=== PATIENT | female | born 1950 | race Caucasian/White ===

== ENCOUNTER 2023-09-06 03:20 | Emergency (ER) | payer MEDICARE ==
[~2023-09-06] VITALS: Ht 170.2 cm; Wt 102.4 kg
[~2023-09-06 03:20] MED LIST: NORCO 5-325 TA1 EACH PO; PREDNISONE20 MG PO; VENTOLIN HFA18 GM INH
[2023-09-06 03:38] LABS: BILIRUBIN, URINE NEGATIVE (negative); BLOOD/HGB, URINE NEGATIVE (Negative); KETONE, URINE NEGATIVE (Negative); LEUK ESTERASE, URINE NEGATIVE (negative); NITRITE, URINE NEGATIVE (negative)
[2023-09-06 03:53] LABS: AMPHETAMINES, URINE NEGATIVE (NEGATIVE); BARBITURATES, URINE NEGATIVE (NEGATIVE); BENZODIAZEPINE, URINE NEGATIVE (NEGATIVE); BUPRENORPHINE, URINE NEGATIVE (NEGATIVE); CANNABINOID, URINE NEGATIVE (NEGATIVE); COCAINE, URINE NEGATIVE (NEGATIVE); ECSTASY, URINE NEGATIVE (NEGATIVE); FENTANYL, URINE NEGATIVE (NEGATIVE); METHADONE, URINE NEGATIVE (NEGATIVE); OPIATES, URINE NEGATIVE (NEGATIVE); OXYCODONE, URINE NEGATIVE (NEGATIVE); PHENCYCLIDINE, URINE NEGATIVE (NEGATIVE)
[2023-09-06 03:57] LABS: HEMOGLOBIN 14.1 g/dL (12.0-18.0); MCH 31.9 (27-36); MCHC 33.3 g/dl (30-36)
[2023-09-06 04:00] LABS: BASOPHILS 0.6 % (0-2); EOSINOPHILS 1.7 % (0-6); HEMATOCRIT 42.2 % (35.0-50.0); MCV 95.6 fl (81-99); MONOCYTES 6.8 % (0-12); NEUTROPHILS 64.9 % (39-80); PLATELET COUNT 224 K/uL (140-440); RBC 4.41 M/ul (4.3-5.7); RDW 14.5 (10.5-15.0)
[2023-09-06 04:19] LABS: MAGNESIUM 1.9 mg/dL (1.8-2.4)
[2023-09-06 04:20] LABS: ALBUMIN 3.3 g/dL (3.4-5.0); ALBUMIN/GLOBULIN RATIO 0.85 (1.1-2.4); ANION GAP 13.7 (7-21); BILIRUBIN, TOTAL 0.3 ng/dL (0.2-1.0); BUN/CREATININE RATIO 17.94 (6.0-28.6); CALCIUM 8.1 mg/dL (8.5-10.1); CREATININE, SERUM 0.78 mg/dL (0.55-1.02); POTASSIUM 3.7 mmol/L (3.5-5.1); PROTEIN, TOTAL 7.2 g/dL (6.4-8.2)
[2023-09-06 04:22] LABS: INFLUENZA B NAA NEGATIVE (NEGATIVE); RESPIRATORY SYNCYTIAL VIR NAA NEGATIVE (NEGATIVE)
[2023-09-06] MEDS ORDERED: ACETAMINOPHEN 500 MG TAB PO ONE (06:15)
[2023-09-06 06:46] VITALS: BP 153/90
--- NOTE | 2023-09-07 18:31 | EKG ---
[facility] [address] [place], [place] [address] Signed Sinus rhythm with occasional premature ventricular complexes Otherwise normal ECG No previous ECGs available Confirmed by MAINE WELLINGTON MD ([id number]) on 09/07/2023 6:32:02 PM Electronically Signed By: MAINE WELLINGTON 09/07/23 183 PATIENT NAME: KINDRA MARLEY Electrocardiogram DATE OF : 52 PHYSICIAN: MAINE WELLINGTON REPORT #: [id number] REPORT IS CONFIDENTIAL AND NOT TO BE RELEASED WITHOUT AUTHORIZATION
== END 2023-09-06 06:50 | disposition home or self-care (01) ==
LOC: ED 03:20
PROVIDERS: Internal Medicine
DX: R07.89 Other chest pain (principal); R41.82 Altered mental status, unspecified; Z91.041 Radiographic dye allergy status; Z79.52 Long term (current) use of systemic steroids
CPT/HCPCS: 36415; 70450; 71045; 72125; 80053; 80307; 81003; 82010; 83735; 83880; 84484; 85025; 87502; 93005; 93010; 99285-25; A9270; G0480; U0002